=== PATIENT | male | born 1945 | race Caucasian/White ===

== ENCOUNTER 2019-03-21 17:45 | Emergency (ER) | payer MEDICARE, MEDICAID | END 2019-03-21 20:00 | disposition left against medical advice (07) | LOC: ERS 17:45 | DX: Z53.21 Procedure and treatment not carried out due to patient leaving prior to being seen by health care provider (principal) ==

== ENCOUNTER 2019-04-01 12:33 | Inpatient (IN) | payer MEDICAID, MEDICARE ==
[2019-04-01 13:28] LABS: #Eosinphils 0.2 thou/uL (0.0-0.7); #Lymphocytes 1.8 thou/uL (1.20-3.40); #Monocytes 0.4 thou/uL (0.11-0.59); #Neutrophils 3.5 thou/uL (1.40-6.50); %Basophils 0.7 % (0.0-1.0); %Eosinophils 3.5 % (0.0-10.0); %Lymphocytes 29.5 % (21.0-51.0); %Monocytes 7.4 % (0.0-10.0); %Neutrophils 59.1 % (42.0-75.0); Hemoglobin 17.6 g/dL (14.0-18.0); Mean Corpuscular HGB CONC 33.1 g/dL (32.0-36.0); Mean Corpuscular Hemoglobin 29.9 pg (27.0-31.0); Mean Corpuscular Volume 90.4 fL (78.0-98.0); Mean Platelet Volume 8.7 fL (7.4-10.4); Platelet Count 143 thou/uL (130-400); RBC Distribution Width 12.3 % (11.5-14.5); Red Blood Cell (RBC) Count 5.89 mill/uL (4.70-6.10)
[2019-04-01 13:52] LABS: ALT (SGPT) 43 U/L (8-55); AST (SGOT) 48 U/L (5-34); Albumin 4.3 g/dL (3.4-4.8); Alkaline Phosphatase 79 U/L (40-110); Anion Gap 13 mmol/L (10-20); BUN (Urea Nitrogen) 10 mg/dL (8.4-25.7); Bilirubin, Total 0.7 mg/dL (0.2-1.2); Calc. Creatinine Clearance 0 mL/min (70-130); Calcium 9.8 mg/dL (7.8-10.44); Carbon Dioxide 29 mmol/L (23-31); Chloride 101 mmol/L (98-107); Estimated GFR-MDRD Greater than 90; Globulin 3.4 g/dL (2.4-3.5); Glucose 123 mg/dL (83-110); Potassium 3.8 mmol/L (3.5-5.1); Protein, Total 7.7 g/dL (5.8-8.1); Sodium 139 mmol/L (136-145)
[2019-04-01 14:19] LABS: CKMB 16.4 ng/mL (0-6.6)
--- NOTE | 2019-04-01 14:19 | RAD ---
XR Chest 1 View Portable History: Chest pain Comparison: None. Findings: Abnormal fullness of the alan bilaterally. No pneumothorax. No effusion. No acute osseous a bnormality. Scarring in the right lung apex. Heart size upper limits of normal. Impression: Abnormal foci of the hilum bilaterally, especially on the left. Nonemergent chest CT bhavin mmended.
--- NOTE | 2019-04-01 15:10 | CT ---
CTA OF THE THORAX UTILIZING IV CONTRAST AND AORTIC DISSECTION PROTOCOL AND 3D REFORMATTED IMAGING: INDICATION: History of chest pain radiating into the back. COMPARISON: None. FINDINGS: No acute aortic stenosis, occlusion, or dissection formation is demonstrated. There is mild ectasia of the infrarenal abdominal aorta measuring up to 2.7 cm. There is aneurysmal dilatation of the righ t common iliac artery measuring 1.8 cm. The left common iliac artery is ectatic measuring 1.5 cm. T he SMA and celiac are widely patent. The right renal artery demonstrates mild narrowing of the proxi mal segment. The left renal artery is patent. There is severe emphysema with scarring involving the right upper lobe. No confluent airspace opacit y, pleural effusion, or pneumothorax is evident. No definite lymphadenopathy is seen within the medi astinum or axillary regions. The adrenal glands are normal-appearing. No focal hepatic lesion is ev ident. No free fluid or enlarged lymph nodes are noted. There is scattered degenerative and osteoar thritic change. IMPRESSION: 1. No acute aortic stenosis, occlusion, or aneurysmal formation. 2. Mild ectasia of the infrarenal abdominal aorta measuring up to 2.7 cm. 3. Mild aneurysmal dilatation of the right common iliac artery measuring 1.8 cm. The left common il iac artery is ectatic measuring 1.5 cm. 4. Mild narrowing involving the proximal aspect of the right renal artery. 5. Severe emphysema. POS: OFF
[2019-04-01] MEDS ORDERED: Iopamidol-370 76% 500 ML 1 ML ONE (15:41)
[2019-04-01] MEDS ORDERED: Nicotine 21 MG PATCH TOP SCH (16:00)
[2019-04-01] MEDS ORDERED: Enoxaparin Sodium 100 MG/ML SYRINGE SC SCH (16:00)
[2019-04-01] MEDS ORDERED: Enoxaparin Sodium 100 MG/ML SYRINGE ONE (16:49)
--- NOTE | 2019-04-01 17:28 | PDOC.HHP ---
Hospitalist HPI - History of Present Illness Back pain, radiating to chest History of Present Illness: 73/M with PMH HTN (non compliant), smoker 3ppd x > 50 years Patient reports back pain, radiating to chest, starting at approximately 10:30, while sitting at home, describes as stabbing, constant, lasting approximately 1 hour, relieved by laying down, exacerbated by nothing, treating with daily ASA 324mg. Associated with nausea and diaphoresis, denies any heart palpitations, sob, wheezing, orthopnea or MATTHEWS. Reports approximately 3-4 similar episodes in the last 3 months, most recent was 10 days ago, he came to the ER, then left without being seen because "it was too busy". Reports he has been stressed out lately, stating financial and family stressors , but would not give further explanation at this time. ED Course: The patient chest pain was resolved on arrival. BP 195/91, HR 71, RR 20, 98% RA, Temp 97.5 EKG showed RBBB, no ST or T wave changes. Troponin 0.768, CKMB 16.4, BNP 50.5 CXR showed abnormal foci at hilum bilaterally, recommend non emergent CT chest. CTA aorta dissection showed no acute aortic stenosis, occlusion or aneurysmal formation. Administered LMWH 1mg/kg and 1 inch nitro-paste to chest wall. Hospitalist ROS - Review of Systems Constitutional: reports: other (spouse reports generalized weakness over past month). denies: fever (ffff), chills, sweats Eyes: denies: pain, vision change ENT: denies: nose congestion, throat pain Respiratory: reports: cough, dry, SOB with excertion. denies: shortness of breath, hemoptysis, sputum, wheezing Cardiovascular: reports: chest pain. denies: palpitations, orthopnea, edema, light headedness Gastrointestinal: reports: nausea. denies: vomiting, abdominal pain, diarrhea, constipation Genitourinary: denies: dysuria, frequency, hematuria Musculoskeletal: reports: back pain. denies: neck pain, shoulder pain Skin: denies: rash, lesions Neurological: denies: incoordination, change in speech Hospitalist History - Past Medical History Source: patient, family Cardiac: reports: HTN, Hyperlipidemia Pulmonary: reports: bronchitis [employer]ER: reports: no pertinent history Gastrointestinal: reports: no pertinent history Heme/Onc: reports: no pertinent history Hepatobiliary: reports: no pertinent history Psych: denies: Anxiety, Depression Infectious Disease: reports: no pertinent history ENT: reports: no pertinent history Renal/: reports: no pertinent history Endocrine: reports: no pertinent history Dermatology: reports: no pertinent history - Past Surgical History Past Surgical History: reports: no pertinent history - Family History Family History: reports: cardiac disorder, hypertension - Social History Smoking Status: Current every day smoker (3 ppd > 50 years) Alcohol: reports: None Drugs: reports: none Living Situation: With Family Domestic Violence: Negative Activity level: independent ambulation - Exam General Appearance: NAD, awake alert Eye: PERRL ENT: normocephalic atraumatic Neck: supple, no JVD, no thyromegaly, no lymphadenopathy Heart: RRR, no murmur, no gallops, no rubs, normal peripheral pulses Respiratory: CTAB, no wheezes, no rales, no ronchi Gastrointestinal: soft, non-tender, non-distended, normal bowel sounds, no palpable masses, no hepatomegaly, no splenomegaly, no guarding, no rigidity Extremities: no cyanosis, no clubbing, no edema Skin: no lesions, no rashes Neurological: cranial nerve grossly intact, no focal deficits Hospitalist Results - Labs Result Diagrams: 04/01/19 13:08 04/01/19 13:08 Lab results: WBC 6.0 thou/uL (4.8-10.8) 04/01/19 13:08 Hgb 17.6 g/dL (14.0-18.0) 04/01/19 13:08 Hct 53.2 % (42.0-52.0) H 04/01/19 13:08 MCV 90.4 fL (78.0-98.0) 04/01/19 13:08 Plt Count 143 thou/uL (130-400) 04/01/19 13:08 Neutrophils % 59.1 % (42.0-75.0) 04/01/19 13:08 Sodium 139 mmol/L (136-145) 04/01/19 13:08 Potassium 3.8 mmol/L (3.5-5.1) 04/01/19 13:08 Chloride 101 mmol/L (98-107) 04/01/19 13:08 Carbon Dioxide 29 mmol/L (23-31) 04/01/19 13:08 BUN 10 mg/dL (8.4-25.7) 04/01/19 13:08 Creatinine 0.82 mg/dL (0.7-1.3) 04/01/19 13:08 Glucose 123 mg/dL (83-110) H 04/01/19 13:08 Calcium 9.8 mg/dL (7.8-10.44) 04/01/19 13:08 Total Bilirubin 0.7 mg/dL (0.2-1.2) 04/01/19 13:08 AST 48 U/L (5-34) H 04/01/19 13:08 ALT 43 U/L (8-55) 04/01/19 13:08 Alkaline Phosphatase 79 U/L (40-110) 04/01/19 13:08 CK-MB (CK-2) 16.4 ng/mL (0-6.6) H* 04/01/19 13:08 Troponin I 0.768 ng/mL (< 0.028) H* 04/01/19 13:08 B-Natriuretic Peptide 50.5 pg/mL (0-100) 04/01/19 13:08 Serum Total Protein 7.7 g/dL (5.8-8.1) 04/01/19 13:08 Albumin 4.3 g/dL (3.4-4.8) 04/01/19 13:08 - EKG Interpretation EKG: RBBB, no significant ST, T wave changes. - Radiology Interpretation Chest x-ray Status: report reviewed by me CT scan - chest Status: report reviewed by me Hospitalist H&P A/P - Problem (1) NSTEMI (non-ST elevated myocardial infarction) Code(s): I21.4 - NON-ST ELEVATION (NSTEMI) MYOCARDIAL INFARCTION Status: Acute (2) Chest pain Code(s): R07.9 - CHEST PAIN, UNSPECIFIED Status: Acute (3) HTN (hypertension) Code(s): I10 - ESSENTIAL (PRIMARY) HYPERTENSION Status: Chronic (4) Tobacco abuse Code(s): Z72.0 - TOBACCO USE Status: Chronic (5) Emphysema of lung Code(s): J43.9 - EMPHYSEMA, UNSPECIFIED Status: Chronic - Plan Plan: Patient not actively having any chest pain or SOB. Continue to trend cardiac enzymes. Telemetry monitoring. Monitor blood pressure. Continue LMWH 1mg/kg BID Continue Nitro-paste q 8 hours. NPO for now, can advance to diet if no interventions necessary. Consult cardiology for NSTEMI. Tobacco Cessation, patient declines and will hold nicotine patch at this time. GI/DVT prophylaxis. Full code Surrogate decision maker, spouse (Pat), (c).
[2019-04-01 17:31] LABS: Troponin I 5.222 ng/mL (< 0.028)
[2019-04-01] MEDS ORDERED: Nitroglycerin 2% Ointment 1 INCH/1 GM Packet ONE (17:47)
[2019-04-01] MEDS ORDERED: Nitroglycerin 0.4 MG TAB (25 Tab Bottle) PO PRN (17:59)
[2019-04-01] MEDS ORDERED: Acetaminophen 650 MG Suppository PR PRN (17:59)
[2019-04-01] MEDS ORDERED: Ondansetron PF 4 MG/2 ML Vial IVP PRN (17:59)
[2019-04-01] MEDS ORDERED: Acetaminophen 325 MG TAB PO PRN (17:59)
[2019-04-01] MEDS ORDERED: Sodium Chloride 0.9% 1,000 ML IV SCH (18:00)
--- NOTE | 2019-04-01 18:23 | PDOC.EVN ---
Event Note - Event Note Event Note: Patient reviewed with RENO Resendez. Patient seen and examined. Had CP, but is now pain free. He reports two prior episodes of CP in the past month, but did not seek a workup. Heart is reg. No murmur. He has occasional PVC's on monitor. EKG with RBBB. No old one for comparison. Nitro applied. Discussed with Dr. Gonzalez. Will continue with ASA and Lovenox, but hold off on Plavix in case surg is necessary. Answered all the patient's questions.
[2019-04-01 18:51] LABS: Prothrombin Time 12.9 SEC (12.0-14.7)
[2019-04-01 20:18] LABS: Troponin I 7.521 ng/mL (< 0.028)
[2019-04-01] MEDS ORDERED: Famotidine/PF 20 mg/2ml Vial SLOW IVP SCH (21:00)
[2019-04-01 23:40] VITALS: BMI 26.6
[2019-04-01 23:50] VITALS: BP 123/71; TEMP 98
[2019-04-02] MEDS ORDERED: Nitroglycerin 2% Ointment 1 INCH/1 GM Packet TOP SCH (01:00)
[2019-04-02] MEDS ORDERED: FLU VACC TS2019-20(65YR UP)/PF 180 MCG/0.5 ML SYRINGE IM ONE (09:00)
[2019-04-02] MEDS ORDERED: Aspirin 325 mg Enteric Coated Tablet PO SCH (09:00)
[2019-04-02] MEDS ORDERED: Enoxaparin Sodium 100 MG/ML SYRINGE SC SCH (09:00)
== END 2019-04-02 02:06 | disposition left against medical advice (07) | DRG 282 ==
LOC: ERS 12:33 → ERHOLD 16:24 → 2NO 21:11
PROVIDERS: ADMIT Internal Medicine; ATTEND Internal Medicine
DX: I21.4 Non-ST elevation (NSTEMI) myocardial infarction (principal); I10 Essential (primary) hypertension; J43.9 Emphysema, unspecified; F17.210 Nicotine dependence, cigarettes, uncomplicated; Z91.14 Patient's other noncompliance with medication regimen
CPT/HCPCS: 36415; 71045; 71275; 72191; 74175; 80053; 82553; 83735; 83880; 84443; 84484; 85025; 85610; 93005; 96372; J1650; S0028

== ENCOUNTER 2019-09-02 05:12 | Emergency (ER) | payer MEDICAID, MEDICARE ==
[2019-09-02] MEDS ORDERED: Fentanyl 100 MCG/2 ML VIAL ONE (06:37)
[2019-09-02 07:16] LABS: Bilirubin Negative (Negative); Blood, Urine Negative (Negative); Clarity Clear (Clear); Glucose, Urine (Dipstick) Normal (Negative); Leukocyte Negative Leu/uL (Negative); Nitrite Negative (Negative); Protein, Urine (Dipstick) Negative (Neg-Trace); Urobilinogen Normal mg/dL (Less than 2)
[2019-09-02 07:23] LABS: CRP (Inflammatory) 6.44 mg/dL (= or < 0.5); Magnesium 1.8 mg/dL (1.6-2.6)
[2019-09-02 07:25] LABS: ALT (SGPT) 63 U/L (8-55); AST (SGOT) 38 U/L (5-34); Albumin 3.6 g/dL (3.4-4.8); Alkaline Phosphatase 129 U/L (40-110); Anion Gap 14 mmol/L (10-20); BUN (Urea Nitrogen) 10 mg/dL (8.4-25.7); Calc. Creatinine Clearance 0 mL/min (70-130); Calcium 9.7 mg/dL (7.8-10.44); Carbon Dioxide 26 mmol/L (23-31); Chloride 94 mmol/L (98-107); Estimated GFR-MDRD Greater than 90; Globulin 5.1 g/dL (2.4-3.5); Glucose 124 mg/dL (83-110); Lipase 6 U/L (8-78); Potassium 3.9 mmol/L (3.5-5.1); Protein, Total 8.7 g/dL (5.8-8.1); Sodium 130 mmol/L (136-145)
[2019-09-02 07:26] LABS: Hemoglobin 15.8 g/dL (14.0-18.0); Mean Corpuscular Hemoglobin 30.8 pg (27.0-31.0); Mean Corpuscular Volume 90.7 fL (78.0-98.0); Mean Platelet Volume 7.1 fL (7.4-10.4); Platelet Count 383 thou/uL (130-400); RBC Distribution Width 12.7 % (11.5-14.5); Red Blood Cell (RBC) Count 5.13 mill/uL (4.70-6.10); White Blood Cell (WBC) Count 20.9 thou/uL (4.8-10.8)
[2019-09-02 07:42] LABS: Band 14 % (5-11); Eosinophils 1 % (0-10); Lymphocytes 4 % (21-51); MDiff Complete? YES; Monocytes 3 % (0-10); Neutrophil 78 % (42-75); Platelet Morphology Comment Appears Adequate; RBC Morphology Normal; Toxic Granulation SLIGHT
[2019-09-02] MEDS ORDERED: Esmolol 2,500 MG/250 ML 250 ML ONE ×2 (08:00→10:03)
--- NOTE | 2019-09-02 08:02 | CT ---
CT chest abdomen and pelvis with IV contrast HISTORY: Abdomen and back pain. FINDINGS: Tiny nonspecific nodule at the left posterior lung base. Linear filling defect through the midportion of the lower thoracic and abdominal aorta extends to the level of the renal arteries, where the patent right renal artery arises from the true lumen and the left renal artery from the pat ent false lumen. Mesenteric arteries are also patent. Small amount of thrombus within the false lumen on the superiormost images. There is arterial calcification and fusiform ectasia of the lower a bdominal aorta. Calcified granulomata are consistent with healed granulomatous disease. Large amount of stool within the right colon. There are degenerative changes of lumbar spine. IMPRESSION : Aortic dissection extending inferiorly to the renal arteries. Visceral arteries are patent. CT arteri ogram chest is pending. Constipation. Atherosclerosis.
--- NOTE | 2019-09-02 08:10 | CT ---
CT ARTERIOGRAM CHEST WITH IV CONTRAST AND 3-D IMAGING: HISTORY: Chest and back pain. Abnormal CT abdomen. FINDINGS: There are emphysematous changes of the lungs. Tiny nonspecific subpleural nodule noted at the left po sterior lung base. Calcification throughout the arterial structures including the coronary arteries. Intimal flap of the aorta begins at the distal aortic arch and extends inferiorly to the renal arteri es. The false lumen contains an additional intimal flap and significant areas of low density thrombus. It is larger than the true lumen. Within the partially visualized abdomen, the intimal flap extends into the celiac trunk and superior mesenteric artery and the left renal artery, all of which remain patent. The ascending aorta is not involved and is of normal caliber. IMPRESSION : 1. 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 2. Prominent atherosclerosis. 3. Emphysema. Findings were called to Dr. Dunham in the emergency department at 0806 hours. Code CR. Transcribed Date/Time: 09/02/2019 9:09 AM
[2019-09-02] MEDS ORDERED: niCARdipine 20MG In NaCl 20 MG/200 ML BAG ONE (08:17)
[2019-09-02] MEDS ORDERED: Lorazepam 2 MG/ML VIAL ONE ×2 (08:36→09:58)
--- NOTE | 2019-09-02 09:46 | RAD ---
PORTABLE CHEST 1 VIEW: DATE: 09/03/2019. TIME: 7:29 AM. HISTORY: Back pain, constipation, chest pain. COMPARISON: 04/01/2019. FINDINGS/IMPRESSION: The heart size is at upper limits of normal. The aorta is tortuous. The lungs were expanded with st able chronic changes. No lobar consolidation, pneumothoraces, juan jose pulmonary edema, or pleural effu sions are seen. POS: [facility]
[2019-09-02] MEDS ORDERED: Iopamidol-370 76% 500 ML 1 ML ONE (10:30)
--- NOTE | 2019-09-03 13:56 | EKG ---
Test Reason : BACKPAIN Blood Pressure : / mmHG Vent. Rate : 107 BPM Atrial Rate : 107 BPM P-R Int : 138 ms QRS Dur : 150 ms QT Int : 396 ms P-R-T Axes : 044 -48 037 degrees QTc Int : 528 ms Sinus tachycardia Possible Left atrial enlargement Right bundle branch block Left anterior fascicular block Bifascicular block Lateral infarct , age undetermined Inferior infarct , age undetermined Abnormal ECG Confirmed by BUZZ HEALY ([id number]), photography editor REINIER HAYES ([id number]) on 09/03/2019 1:56:31 PM Referred By: Confirmed By:BUZZ HEALY
== END 2019-09-02 10:34 | disposition short-term general hospital (02) ==
LOC: ERS 05:12
DX: I71.00 Dissection of unspecified site of aorta (principal); I10 Essential (primary) hypertension; J43.9 Emphysema, unspecified; F41.9 Anxiety disorder, unspecified; F17.210 Nicotine dependence, cigarettes, uncomplicated
CPT/HCPCS: 71045; 71275; 74177; 80053; 81003; 82550; 83690; 83735; 84484; 85025; 85652; 86140; 93005; 96365; 96366; 96375; 96376; J2060; J3010; Q9967

== ENCOUNTER 2022-01-30 23:51 | Inpatient (IN) | payer MEDICARE, MEDICAID ==
[2022-01-31] MEDS ORDERED: niCARdipine 25 MG/10 ML VIAL ONE (00:12)
[2022-01-31 00:17] LABS: #Basophils 0.1 thou/uL (0.0-0.2); #Eosinphils 0.4 thou/uL (0.0-0.7); #Lymphocytes 3.1 thou/uL (1.20-3.40); #Monocytes 1.2 thou/uL (0.11-0.59); #Neutrophils 6.6 thou/uL (1.40-6.50); %Basophils 0.6 % (0.0-1.0); %Eosinophils 3.5 % (0.0-10.0); %Lymphocytes 26.9 % (21.0-51.0); %Monocytes 10.9 % (0.0-10.0); %Neutrophils 58.1 % (42.0-75.0); Mean Corpuscular HGB CONC 34.8 g/dL (32.0-36.0); Mean Corpuscular Volume 92.1 fl (78.0-98.0); Mean Platelet Volume 7.5 fL (7.4-10.4); Platelet Count 195 thou/uL (130-400); RBC Distribution Width 12.4 % (11.5-14.5); Red Blood Cell (RBC) Count 4.69 mill/uL (4.70-6.10); White Blood Cell (WBC) Count 11.4 thou/uL (4.8-10.8)
[2022-01-31 00:35] LABS: ALT (SGPT) 12 U/L (8-55); AST (SGOT) 20 U/L (5-34); Albumin 4.2 g/dL (3.4-4.8); Alkaline Phosphatase 98 U/L (40-110); Anion Gap 15 mmol/L (10-20); BUN (Urea Nitrogen) 15 mg/dL (8.4-25.7); Bilirubin, Total 0.6 mg/dL (0.2-1.2); Calc. Creatinine Clearance 0 mL/min (70-130); Calcium 9.8 mg/dL (7.8-10.44); Carbon Dioxide 19 mmol/L (23-31); Chloride 105 mmol/L (98-107); Estimated GFR 77; Globulin 3.9 g/dL (2.4-3.5); Glucose 108 mg/dL (83-110); Potassium 3.9 mmol/L (3.5-5.1); Protein, Total 8.1 g/dL (5.8-8.1); Sodium 135 mmol/L (136-145)
[2022-01-31 00:36] LABS: PTT 46.4 sec (22.9-36.1); Prothrombin Time 13.9 sec (12.0-14.7)
[2022-01-31 00:55] LABS: SARS-CoV-2 NAA Rapid Test Not Detected (NotDetected)
[2022-01-31] MEDS ORDERED: Acetaminophen 500 MG TAB ONE (00:57)
[2022-01-31] MEDS ORDERED: Phytonadione 10 MG/ML AMP SLOW IVP SCH (02:00)
[2022-01-31] MEDS ORDERED: Ondansetron PF 4 MG/2 ML Vial IVP PRN (02:35)
[2022-01-31] MEDS ORDERED: niCARdipine 25 MG in Sodium Chloride 0.9% 250 ML 250 ML IVPB PRN (02:37)
[2022-01-31 04:09] LABS: Hemoglobin A1c 5.3 % (4.0-6.0)
[2022-01-31 04:10] LABS: #Basophils 0.1 thou/uL (0.0-0.2); #Eosinphils 0.2 thou/uL (0.0-0.7); #Lymphocytes 2.3 thou/uL (1.20-3.40); #Monocytes 0.6 thou/uL (0.11-0.59); #Neutrophils 6.4 thou/uL (1.40-6.50); %Basophils 0.7 % (0.0-1.0); %Eosinophils 1.6 % (0.0-10.0); %Lymphocytes 23.8 % (21.0-51.0); %Monocytes 6.5 % (0.0-10.0); %Neutrophils 67.4 % (42.0-75.0); Hemoglobin 15.4 g/dL (14.0-18.0); Mean Corpuscular HGB CONC 33.8 g/dL (32.0-36.0); Mean Corpuscular Hemoglobin 31.4 pg (27.0-31.0); Mean Corpuscular Volume 92.7 fl (78.0-98.0); Mean Platelet Volume 7.6 fL (7.4-10.4); Platelet Count 186 thou/uL (130-400); RBC Distribution Width 12.4 % (11.5-14.5); Red Blood Cell (RBC) Count 4.92 mill/uL (4.70-6.10); White Blood Cell (WBC) Count 9.5 thou/uL (4.8-10.8)
[2022-01-31 04:14] VITALS: BMI 23.4
[2022-01-31 04:32] LABS: Anion Gap 14 mmol/L (10-20); BUN (Urea Nitrogen) 16 mg/dL (8.4-25.7); Calc. Creatinine Clearance 84 mL/min (70-130); Calcium 9.7 mg/dL (7.8-10.44); Carbon Dioxide 22 mmol/L (23-31); Cardiac Risk 4.4 (Less than 4.5); Chloride 104 mmol/L (98-107); Cholesterol 170 mg/dl (< 200 Desired); Estimated GFR 91; Glucose 114 mg/dL (83-110); HDL Cholesterol 39 mg/dL (>60 Neg Risk); LDL Cholesterol, Calculated 116 mg/dL; Potassium 3.7 mmol/L (3.5-5.1); Sodium 136 mmol/L (136-145); Triglycerides 75 mg/dL (Less than 150)
[2022-01-31] MEDS: Acetaminophen 325 MG TAB PO PRN (09:13)
[2022-01-31] MEDS: Famotidine 20 MG TAB PO SCH ×2 (09:14→20:30)
[2022-01-31] MEDS: Losartan 25 MG TAB PO SCH ×2 (09:14→12:13)
[2022-01-31] MEDS ORDERED: diphenhydrAMINE 25 MG CAP PO PRN (09:28)
[2022-01-31] MEDS ORDERED: Artificial Tear Sol 15 ML BOT EA EYE PRN (09:28)
[2022-01-31] MEDS ORDERED: Loratadine 10 MG TAB PO PRN (09:28)
[2022-01-31] MEDS ORDERED: Senokot S 8.6-50 MG TAB PO PRN (09:28)
[2022-01-31] MEDS ORDERED: Cepastat Lozenges 1 LOZ PO PRN (09:28)
[2022-01-31] MEDS ORDERED: Moisturizing Cream (Eucerin) 113 GM JAR TOP PRN (09:28)
[2022-01-31] MEDS ORDERED: Acetaminophen 650 MG Suppository PR PRN (09:28)
[2022-01-31] MEDS ORDERED: Sodium Chloride 0.65% Nasal 44 ML BOT EA NARE PRN (09:28)
[2022-01-31] MEDS ORDERED: Benzonatate 100 MG CAP PO PRN (09:28)
[2022-01-31] MEDS ORDERED: Calcium Carbonate 500 MG ChewTAB PO PRN (09:28)
[2022-01-31] MEDS: Labetalol HCl 100 MG/20 ML VIAL SLOW IVP PRN ×2 (18:28→23:30)
[2022-01-31] MEDS ORDERED: Nicotine 14 MG PATCH TOP SCH (18:30)
[2022-01-31] MEDS: hydrALAZINE 20 MG/ML VIAL SLOW IVP PRN (19:56)
[2022-01-31] MEDS ORDERED: Losartan 25 MG TAB PO SCH (20:30)
[2022-01-31] MEDS: Atorvastatin Calcium 40 MG TAB PO SCH ×2 (20:30)
[2022-01-31] MEDS ORDERED: hydrALAZINE 20 MG/ML VIAL SLOW IVP SCH (20:30)
[2022-01-31] MEDS ORDERED: ALPRAZolam 0.25 MG TAB PO SCH (21:00)
[2022-02-01] MEDS: niCARdipine 25 MG in Sodium Chloride 0.9% 250 ML 250 ML IVPB PRN ×2 (00:10→04:44)
[2022-02-01 03:36] LABS: #Eosinphils 0.1 thou/uL (0.0-0.7); #Lymphocytes 2.1 thou/uL (1.20-3.40); #Monocytes 0.7 thou/uL (0.11-0.59); #Neutrophils 7.4 thou/uL (1.40-6.50); %Basophils 0.4 % (0.0-1.0); %Lymphocytes 20.2 % (21.0-51.0); %Monocytes 6.8 % (0.0-10.0); %Neutrophils 71.6 % (42.0-75.0); Hemoglobin 15.8 g/dL (14.0-18.0); Mean Corpuscular HGB CONC 33.4 g/dL (32.0-36.0); Mean Corpuscular Hemoglobin 30.7 pg (27.0-31.0); Mean Corpuscular Volume 91.9 fl (78.0-98.0); Mean Platelet Volume 8.1 fL (7.4-10.4); Platelet Count 182 thou/uL (130-400); RBC Distribution Width 12.6 % (11.5-14.5); Red Blood Cell (RBC) Count 5.13 mill/uL (4.70-6.10); White Blood Cell (WBC) Count 10.3 thou/uL (4.8-10.8)
[2022-02-01 03:50] LABS: Anion Gap 12 mmol/L (10-20); BUN (Urea Nitrogen) 13 mg/dL (8.4-25.7); Calc. Creatinine Clearance 88 mL/min (70-130); Calcium 9.7 mg/dL (7.8-10.44); Carbon Dioxide 22 mmol/L (23-31); Chloride 105 mmol/L (98-107); Estimated GFR 92; Glucose 131 mg/dL (83-110); Potassium 3.4 mmol/L (3.5-5.1); Sodium 136 mmol/L (136-145)
[2022-02-01] MEDS: Acetaminophen 325 MG TAB PO PRN ×2 (04:55→08:57)
[2022-02-01] MEDS: Labetalol HCl 100 MG/20 ML VIAL SLOW IVP PRN (07:48)
[2022-02-01] MEDS: Losartan 25 MG TAB PO SCH (08:57)
[2022-02-01] MEDS: Famotidine 20 MG TAB PO SCH ×2 (09:01→20:50)
[2022-02-01] MEDS ORDERED: ALPRAZolam 0.25 MG TAB PO PRN (10:55)
[2022-02-01] MEDS: Enalaprilat Dihydrate 1.25 MG/ML VIAL SLOW IVP SCH ×3 (11:27→23:29)
[2022-02-01] MEDS: Potassium Chloride 20 MEQ in Premix Bag 1 BAG IVPB SCH ×3 (11:27→16:52)
[2022-02-01] MEDS: hydrALAZINE 20 MG/ML VIAL SLOW IVP PRN (14:15)
[2022-02-01] MEDS ORDERED: Amlodipine 5 MG TAB PO SCH (16:30)
[2022-02-01] MEDS ORDERED: Nicotine 21 MG PATCH TD SCH (16:30)
[2022-02-01] MEDS: Nicotine 21 MG PATCH TD SCH (16:52)
[2022-02-01] MEDS: Atorvastatin Calcium 40 MG TAB PO SCH (20:50)
[2022-02-02] MEDS ORDERED: Sterile Water 10 ML VIAL FS PRN (00:45)
[2022-02-02] MEDS ORDERED: OLANZapine 10 MG VIAL IM SCH (00:45)
[2022-02-02] MEDS: Acetaminophen 325 MG TAB PO PRN (02:33)
[2022-02-02] MEDS: hydrALAZINE 20 MG/ML VIAL SLOW IVP PRN (03:56)
[2022-02-02] MEDS: Enalaprilat Dihydrate 1.25 MG/ML VIAL SLOW IVP SCH ×3 (05:11→16:13)
[2022-02-02 05:31] LABS: #Eosinphils 0.2 thou/uL (0.0-0.7); #Lymphocytes 2.6 thou/uL (1.20-3.40); #Monocytes 0.9 thou/uL (0.11-0.59); #Neutrophils 5.6 thou/uL (1.40-6.50); %Basophils 0.4 % (0.0-1.0); %Eosinophils 2.4 % (0.0-10.0); %Lymphocytes 27.7 % (21.0-51.0); %Monocytes 9.7 % (0.0-10.0); %Neutrophils 59.8 % (42.0-75.0); Hemoglobin 16.4 g/dL (14.0-18.0); Mean Corpuscular HGB CONC 33.3 g/dL (32.0-36.0); Mean Corpuscular Hemoglobin 30.8 pg (27.0-31.0); Mean Corpuscular Volume 92.4 fl (78.0-98.0); Mean Platelet Volume 7.4 fL (7.4-10.4); Platelet Count 186 thou/uL (130-400); RBC Distribution Width 12.8 % (11.5-14.5); Red Blood Cell (RBC) Count 5.32 mill/uL (4.70-6.10); White Blood Cell (WBC) Count 9.3 thou/uL (4.8-10.8)
[2022-02-02 06:19] LABS: Anion Gap 14 mmol/L (10-20); BUN (Urea Nitrogen) 13 mg/dL (8.4-25.7); Calc. Creatinine Clearance 87 mL/min (70-130); Calcium 9.9 mg/dL (7.8-10.44); Carbon Dioxide 20 mmol/L (23-31); Chloride 108 mmol/L (98-107); Estimated GFR 92; Glucose 97 mg/dL (83-110); Potassium 3.7 mmol/L (3.5-5.1); Sodium 138 mmol/L (136-145)
[2022-02-02] MEDS: Labetalol HCl 100 MG/20 ML VIAL SLOW IVP PRN (06:20)
[2022-02-02] MEDS ORDERED: NIFEdipine XL 30 MG TAB PO SCH (09:00)
[2022-02-02] MEDS ORDERED: Amlodipine 5 MG TAB PO SCH (09:00)
[2022-02-02] MEDS ORDERED: Lidocaine 5% Patch TD SCH (09:00)
[2022-02-02] MEDS ORDERED: levETIRAcetam in NS 2,000 MG in Premix Bag 1 BAG IVPB SCH (09:30)
[2022-02-02 10:01] LABS: INR-International Normal Ratio 1.1; Prothrombin Time 14.5 sec (12.0-14.7)
[2022-02-02] MEDS: Famotidine 20 MG TAB PO SCH (10:23)
[2022-02-02] MEDS: Labetalol HCl 100 MG TAB PO SCH ×2 (10:23→16:12)
[2022-02-02] MEDS: Nicotine 21 MG PATCH TD SCH (10:24)
[2022-02-02] MEDS: Losartan 25 MG TAB PO SCH (10:24)
[2022-02-02] MEDS: levETIRAcetam 500 MG/5 ML VIAL SLOW IVP SCH ×2 (10:25→10:35)
[2022-02-02] MEDS ORDERED: Senokot S 8.6-50 MG TAB PO PRN (10:45)
[2022-02-02] MEDS: Diclofenac 1% 100 GM GEL TP SCH ×2 (14:13→18:31)
[2022-02-02] MEDS ORDERED: ALPRAZolam 0.25 MG TAB PO PRN (15:47)
[2022-02-02 15:51] VITALS: TEMP 98.3
[2022-02-02 16:16] VITALS: BP 132/67
[2022-02-02] MEDS ORDERED: Transdermal Patch Removal TOP SCH (21:00)
[2022-02-02] MEDS ORDERED: levETIRAcetam in NS 500 MG in Premix Bag 1 BAG IVPB SCH (21:00)
[2022-02-02] MEDS ORDERED: levETIRAcetam 500 MG/5 ML VIAL SLOW IVP SCH (21:00)
== END 2022-02-02 18:45 | disposition left against medical advice (07) | DRG 64 ==
LOC: ERS 23:51 → CCU 01-31 02:12 → NEURO 02-01 18:34
PROVIDERS: ADMIT Internal Medicine; ATTEND Family Medicine
DX: I61.9 Nontraumatic intracerebral hemorrhage, unspecified (principal); I71.02 Dissection of abdominal aorta; G81.94 Hemiplegia, unspecified affecting left nondominant side; I16.1 Hypertensive emergency; I50.30 Unspecified diastolic (congestive) heart failure; Z66 Do not resuscitate; J43.9 Emphysema, unspecified; F17.210 Nicotine dependence, cigarettes, uncomplicated; F41.9 Anxiety disorder, unspecified; E78.5 Hyperlipidemia, unspecified; I11.0 Hypertensive heart disease with heart failure; Z88.1 Allergy status to other antibiotic agents; Z78.1 Physical restraint status; Z82.49 Family history of ischemic heart disease and other diseases of the circulatory system; Z98.890 Other specified postprocedural states; Z91.14 Patient's other noncompliance with medication regimen; Z20.822 Contact with and (suspected) exposure to COVID-19
CPT/HCPCS: 36415; 36416; 70450; 80048; 80053; 80061; 83036; 84146; 84443; 85025; 85610; 85730; 93005; 93010; 93306; 94640; 95816; 95819; 95957; 96365; J0360; J1953; J2405; J3430; J3480; J7050; J7620; U0002